=== PATIENT | male | born 1970 | race Caucasian/White ===

== ENCOUNTER 2018-09-19 12:54 | Emergency (ER) | payer SELFPAY ==
[~2018-09-19] VITALS: Ht 167.6 cm; Wt 77.6 kg
[~2018-09-19 12:54] MED LIST: IBUP-1542 PO
[2018-09-19 12:57] VITALS: BP 121/65; PULSE 79; RESP 18; Ht 167.6 cm; Wt 77.6 kg
--- NOTE | 2018-09-19 15:04 | ERD ---
ER Documentation Chief Complaint Chief Complaint headache with lt eye pressure , lt arm pain/numbness x 4 weeks HPI Patient is a 48-year-old male with no medical problems who presents with headache. He has right-sided headache that is been there for the past 4 weeks. Is coming and going. He has had pain and swelling around his eyes. He tried Tylenol. He had subjective fevers but did not take his temperature. He had chest pain as well and describes some left arm numbness. Upon review of old medical records this is the patient's first visit to the emergency department. Patient does not currently have a primary doctor. ROS All systems reviewed and are negative except as per history of present illness. Medications Home Meds Active Scripts Ibuprofen* (Motrin*) 600 Mg Tab, 600 MG PO Q6H PRN for PAIN AND OR ELEVATED TEMP, #30 TAB Prov:ANKIT FOREMAN MD 09/19/18 Allergies Allergies: Coded Allergies: No Known Allergy (Unverified , 09/19/18) PMhx/Soc Medical and Surgical Hx: pt denies Medical Hx, pt denies Surgical Hx Hx Alcohol Use: No Hx Substance Use: No Hx Tobacco Use: No Smoking Status: Never smoker FmHx Family History: No diabetes Physical Exam Vitals Vital Signs Date Temp Pulse Resp B/P (MAP) Pulse Ox O2 O2 Flow FiO2 Time Delivery Rate 09/19/18 98.1 79 18 121/65 97 12:57 (83) Physical Exam Const: No acute distress Head: Atraumatic Eyes: Normal Conjunctiva ENT: Normal External Ears, Nose and Mouth. Neck: Full range of motion. No meningismus. Resp: Clear to auscultation bilaterally Cardio: Regular rate and rhythm, no murmurs, left-sided chest pain with palpation Abd: Soft, non tender, non distended. Normal bowel sounds Skin: No petechiae or rashes Back: No midline or flank tenderness Ext: No cyanosis, or edema Neur: Awake and alert Psych: Normal Mood and Affect Procedures/MDM EKG read by me: Rate/Rhythm: Regular rate and rhythm Intervals: Normal Impression: No evidence of ischemia or arrhythmia Chest x-ray negative per radiology. CT brain negative per radiology. Patient is a 48-year-old male who presents with chest pain and headache. CT head was negative. EKG and chest x-ray were negative. At this point I doubt intrarenal hemorrhage or mass. I doubt acute coronary syndrome, pneumonia, pneumothorax, pulmonary embolism, or aortic dissection. The patient will be discharged but will follow closely with a primary doctor within 24 to 48 hours. I will give him information for the local clinics. He will be given a prescription for ibuprofen for pain and inflammation reduction. He can return for any worsening symptoms. He was given copies of his imaging test prior to discharge. Departure Diagnosis: Primary Impression: Chest pain Chest pain type: unspecified Qualified Codes: R07.9 - Chest pain, unspecified Additional Impression: Headache Headache type: unspecified Headache chronicity pattern: acute headache Intractability: not intractable Qualified Codes: R51 - Headache Condition: Fair Patient Instructions: Self-Care for Headaches, Chest Pain, Uncertain Cause [facility]errals[facility] Usted se palma hecho un examen mdico de control que le indica que no est en sara condicin que requiera tratamiento urgente en el Departamento de Emergencia. Un estudio ms profundo y el tratamiento de nino condicin pueden esperar sin ningn riesgo hasta que usted sea atendida/o en el consultorio de nino mdico o sara clnica. Es responsabilidad suya arreglar sara hussein para el seguimiento del jaimie. MANEJO DE CONDICIONES NO URGENTES EN EL FUTURO 1) Si usted tiene un mdico de atencin primaria: Usted debera llamar a nino mdico de atencin primaria antes de venir al departamento de emergencia. Despus de las horas de consultorio, nino doctor o nino asociado/a est disponible por telfono. El mdico o enfermero de john en el servicio telefnico puede asesorarle por cole medio para atender el problema, o jaimie contrario se puede programar sara hussein. 2) Si usted no tiene un mdico de atencin primaria: Llame al mdico o clnica de referencia que aparece abajo rogelio las horas de consultorio para hacer sara hussein para que le vean. CLINICAS: [place] [id number] [phone] [facility] [phone] [facility] [phone] [place] [phone] [place] [phone] [place] [phone] Additional Instructions: Llame al doctor MAANA y chris sara HUSSEIN PARA DENTRO DE 1-2 ANDRADE.Dgale a la secretaria que nosotros le instruimos hacer esta hussein.Avise o llame si nino condicin se empeora antes de la hussein. Regresa aqui si peor o no mejor. ANKIT FOREMAN MD Sep 19, 2018 15:04
== END 2018-09-19 15:09 | disposition home or self-care (01) ==
LOC: FTE 12:54
DX: R07.89 Other chest pain (principal); R51 Headache
CPT/HCPCS: 70450; 71045; 93005